=== PATIENT | male | born 1945 | race Caucasian/White ===

== ENCOUNTER 2018-05-09 15:43 | Emergency (ER) | payer MEDICARE ==
--- NOTE | 2018-05-09 16:09 | EDM.PDOC ---
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 Review of Systems: As per history of present illness and below otherwise all systems reviewed and negative. Past medical history: As per history of present illness and as reviewed below otherwise noncontributory. Surgical history: As per history of present illness and as reviewed below otherwise noncontributory. Social history: No reported history of drug or alcohol abuse. Family history: As per history of present illness and as reviewed below otherwise noncontributory. Physical exam: Alert and oriented gentleman answering questions appropriately in full sentences without any shortness of breath. He is nontoxic in appearance. HEENT: Atraumatic, normocehpalic, pupils reactive, negative for conjunctival pallor or scleral icterus, mucous membranes moist, throat clear, neck supple, nontender, trachea midline. Chest congenital deformity on the right left tympanic membrane without erythema Posterior pharynx clear Lungs: Clear to auscultation, breath sounds equal bilaterally, chest non tender. Heart: S1S2, regular, negative for clicks, rubs, or JVD. Abdomen: Soft, nondistended, nontender. Negative for masses or hepatossplenmegaly. Negative for costovertebral tenderness. Pelvis: Stable nontender. Genitourinary: Deferred. Rectal: Deferred Extremities: Pain noted when raising his arm up on left shoulder. negative for cords or calf pain. Neurovascular unremarkable. Neuro: Awake, alert, oriented. Cranial nerves II through XII unremarkable. Cerebellum unremarkable. Motor and sensory unremarkable throughout. Exam nonfocal. Diagnostics: []shoulder xray. CBC CMP ESR Therapeutics: [] Impression: []Shoulder pain on left Severe osteoarthritis Plan: []Discharge home Follow up with your appointment with next week You may need an injection into that shoulder with some cortisone Return to the emergency department instructed Definitive disposition and diagnosis as appropriate pending reevaluation and review of above. Onset: Sudden Duration: Hour(s):, Day(s): Location: Reports: Upper Extremity, Left Left Shoulder Pain Score (Numeric/FACES): 4 - Related Data Allergies Allergy/AdvReac Type Severity Reaction Status Date / Time No Known Allergies Allergy Verified 05/09/18 16:11 Home Meds: Home Meds Dulaglutide [Trulicity] 1 dose SQ WEEKLY 05/09/18 [History] InFLIXimab [Remicade] 1 dose IV ASDIRECTED 05/09/18 [History] Insulin Aspart [NovoLOG] 25 units SQ BID 05/09/18 [History] Insulin Degludec/Liraglutide [Xultophy 100 Unit-3.6MG/ml Pen] 50 units SQ DAILY 05/09/18 [History] Lisinopril 10 mg PO DAILY 05/09/18 [History] [place]-3/DHA/Epa/Fish Oil [[place] 3 500 Softgel] 4 cap PO DAILY 05/09/18 [History] amLODIPine Besylate [Amlodipine Besylate] 5 mg PO DAILY 05/09/18 [History] atorvaSTATin Calcium [Atorvastatin Calcium] 80 mg PO DAILY 05/09/18 [History] Review of Systems - Review of Systems Review Of Systems: ROS reveals no pertinent complaints other than HPI. ED EXAM, GENERAL - Physical Exam Exam: See Below (See dictation) Course - Vital Signs Last Recorded V/S: Last Vital Signs Temp 36.6 C 05/09/18 16:19 Pulse 96 05/09/18 16:19 Resp 18 05/09/18 16:19 BP 162/93 H 05/09/18 16:19 Pulse Ox 96 05/09/18 16:19 - Orders/Labs/Meds Orders: Active Orders 24 hr Category Date Time Status Shoulder Comp Lt [CR] Stat Exams 05/09/18 16:04 Taken Labs: Laboratory Tests 05/09/18 05/09/18 Range/Units 16:13 16:13 WBC 5.50 (4.0-11.0) K/uL RBC 4.77 (4.50-5.90) M/uL Hgb 14.5 (13.0-17.0) g/dL Hct 41.2 (38.0-50.0) % MCV 86.4 (80.0-98.0) fL MCH 30.4 (27.0-32.0) pg MCHC 35.2 (31.0-37.0) g/dL RDW Std Deviation 46.0 (28.0-62.0) fl RDW Coeff of Sandra 15 (11.0-15.0) % Plt Count 131 L (150-400) K/uL MPV 11.20 (7.40-12.00) fL Neut % (Auto) 51.8 (48.0-80.0) % Lymph % (Auto) 37.5 (16.0-40.0) % Swisher % (Auto) 7.8 (0.0-15.0) % Eos % (Auto) 2.4 (0.0-7.0) % Baso % (Auto) 0.5 (0.0-1.5) % Neut # (Auto) 2.9 (1.4-5.7) K/uL Lymph # (Auto) 2.1 (0.6-2.4) K/uL Swisher # (Auto) 0.4 (0.0-0.8) K/uL Eos # (Auto) 0.1 (0.0-0.7) K/uL Baso # (Auto) 0.0 (0.0-0.1) K/uL Nucleated RBC % 0.0 /100WBC Nucleated RBCs # 0 K/uL ESR 17 (0-19) mm/hr Sodium 137 (136-148) mmol/L Potassium 4.1 (3.5-5.1) mmol/L Chloride 105 (98-107) mmol/L Carbon Dioxide 20.9 L (21.0-32.0) mmol/L BUN 36 H (7.0-18.0) mg/dL Creatinine 1.4 H (0.8-1.3) mg/dL Est Cr Clr Drug Dosing 46.14 mL/min Estimated GFR (MDRD) 49.8 ml/min Glucose 191 H (74-106) mg/dL Calcium 9.2 (8.5-10.1) mg/dL Total Bilirubin 0.6 (0.2-1.0) mg/dL AST 32 (15-37) IU/L ALT 63 (14-63) IU/L Alkaline Phosphatase 75 (46-116) U/L Total Protein 8.4 H (6.4-8.2) g/dL Albumin 3.4 (3.4-5.0) g/dL Globulin 5.0 H (2.6-4.0) g/dL Albumin/Globulin Ratio 0.7 L (0.9-1.6) Departure - Departure Time of Disposition: 17:04 Disposition: Home, Self-Care 01 Condition: Good Clinical Impression: Osteoarthritis Qualifiers: Osteoarthritis location: shoulder Osteoarthritis type: unspecified Laterality: left Qualified Code(s): M19.012 - Primary osteoarthritis, left shoulder - Discharge Information Instructions: Shoulder Pain, [id number], What You Need to Know About Osteoarthritis Referrals: PCP,None [Primary Care Provider] - Forms: ED Department Discharge Additional Instructions: The following information is given to patients seen in the emergency department who are being discharged to home. This information is to outline your options for follow-up care. We provide all patients seen in our emergency department with a follow-up referral. The need for follow-up, as well as the timing and circumstances, are variable depending upon the specifics of your emergency department visit. If you don't have a primary care physician on staff, we will provide you with a referral. We always advise you to contact your personal physician following an emergency department visit to inform them of the circumstance of the visit and for follow-up with them and/or the need for any referrals to a consulting specialist. The emergency department will also refer you to a specialist when appropriate. This referral assures that you have the opportunity for followup care with a specialist. All of these measure are taken in an effort to provide you with optimal care, which includes your followup. Under all circumstances we always encourage you to contact your private physician who remains a resource for coordinating your care. When calling for followup care, please make the office aware that this follow-up is from your recent emergency room visit. If for any reason you are refused follow-up, please contact the [facility] emergency department at and asked to speak to the emergency department charge nurse. Discharge home Follow up with your appointment with next week You may need an injection into that shoulder with some cortisone Return to the emergency department instructed Definitive disposition and diagnosis as appropriate pending reevaluation and review of above. - My Orders Last 24 Hours: My Active Orders 05/09/18 16:04 Shoulder Comp Lt [CR] Stat - Assessment/Plan Last 24 Hours: My Active Orders 05/09/18 16:04 Shoulder Comp Lt [CR] Stat
--- NOTE | 2018-05-10 18:02 | CR ---
EXAM DATE: 05/09/18 PATIENT'S AGE: 73 Patient: FRANDY MURPHY Facility: [place], [place] Site . Site : [id number] Study: XRay Shoulder Left [id number] 4:47:39 PM Ordering Physician: Doctor Sarabia Final Report: INDICATION: Pain. TECHNIQUE: Three views. COMPARISON: None. FINDINGS: There is no fracture/dislocation identified. Severe osteoarthritic narrowing of the glenohumeral joint with associated osteophytes. Moderate hypertrophic change at the acromioclavicular joint. No pathologic periarticular calcification identified. IMPRESSION: Severe osteoarthritic change without fracture/acute abnormality visible radiographically. Dictated by Alli Lugo MD @ May 09 2018 4:55PM (Electronic Signature) Report Signed by Proxy. WIN
== END 2018-05-09 17:15 | disposition home or self-care (01) ==
LOC: MW.ED 15:43
DX: M19.012 Primary osteoarthritis, left shoulder (principal); Z79.899 Other long term (current) drug therapy; Z79.4 Long term (current) use of insulin
CPT/HCPCS: 36415; 73030-26-LT; 73030-LT; 80053; 85025; 85652; 99283